=== PATIENT | male | born 1960 | race Caucasian/White ===

== ENCOUNTER 2017-01-22 12:23 | Day surgery (SDC) | payer OTHER ==
[~2017-01-22] VITALS: Ht 182.9 cm; Wt 100.6 kg
[~2017-01-22 12:23] MED LIST: BUSP10TA2 PO; CIPR500T4 PO; DOXY100T20 PO; HYDR8TAB25 PO; NALO25TA PO; OMEP40CA6 PO; TRAZ100T15 PO
[2017-01-22] MEDS ORDERED: FENT-65 TD (13:54)
[2017-01-22 13:57] VITALS: Ht 182.9 cm; Wt 100.6 kg
== END 2017-01-22 16:24 | disposition home or self-care (01) ==
LOC: GIL 12:23
PROVIDERS: ATTEND Internal Medicine Gastroenterology
DX: K74.60 Unspecified cirrhosis of liver (principal); Z53.9 Procedure and treatment not carried out, unspecified reason

== ENCOUNTER 2017-03-05 12:02 | Day surgery (SDC) | payer OTHER ==
[~2017-03-05 12:02] MED LIST changes: -CIPR500T4 PO; -DOXY100T20 PO; +FENT-65 TD; -NALO25TA PO; -OMEP40CA6 PO
== END 2017-03-05 15:45 | disposition home or self-care (01) ==
LOC: GIL 12:02
PROVIDERS: ATTEND Internal Medicine Gastroenterology
DX: K21.9 Gastro-esophageal reflux disease without esophagitis (principal); Z53.9 Procedure and treatment not carried out, unspecified reason

== ENCOUNTER 2017-06-01 11:55 | Emergency (ER) | payer SELFPAY ==
[~2017-06-01] VITALS: Ht 182.9 cm; Wt 115.0 kg
[2017-06-01 12:05] VITALS: Ht 182.9 cm; Wt 115.0 kg
[2017-06-02] MEDS ORDERED: BUSP10TA2 PO (11:23)
[2017-06-02] MEDS ORDERED: FENT-65 TD (11:23)
[2017-06-02] MEDS ORDERED: BUS5 PO (11:23)
== END 2017-06-01 14:47 | disposition left against medical advice (07) ==
LOC: E/R 11:55
DX: Z53.21 Procedure and treatment not carried out due to patient leaving prior to being seen by health care provider (principal)